=== PATIENT | male | born 1980 | race Caucasian/White ===

== ENCOUNTER → 2023-06-16 13:51 | Outpatient (CLI) | payer OTHER, SELFPAY ==
--- NOTE | ~2023-06-16 | XR_ITS ---
EXAMINATION:XR cervical spine 4-5V DATE: 06/16/2023 14:57 INDICATION: Cervical radiculopathy TECHNIQUE: AP, lateral,, bilateral oblique, lateral swimmers and odontoid views of the cervical spine are provided. COMPARISON: None FINDINGS: Alignment is normal. The odontoid process is intact. No fracture is identified. The vertebr al body heights are normal. There is moderate loss of intervertebral disc space height at C5-6 and C6 -7. Degenerative osteophytes project from the anterior endplates of the C4, C5, and C6 vertebral bodi es. There is moderate facet and uncovertebral joint osteoarthritis in the mid cervical spine. There i s mild to moderate bilateral neuroforaminal stenosis at C5-6. Prevertebral soft tissues are normal. IMPRESSION: 1. Moderate cervical spondylosis without acute findings. Reviewed, dictated and finalized at location B.
== END ==
DX: M54.12 Radiculopathy, cervical region (principal); M43.02 Spondylolysis, cervical region
CPT/HCPCS: 72050

== ENCOUNTER 2024-06-01 10:09 | Emergency (ER) | payer OTHER, SELFPAY ==
--- NOTE | ~2024-06-01 | XR_ITS ---
EXAMINATION: XR lumbar spine min 4V DATE: 06/01/2024 11:15 INDICATION: Low back pain. TECHNIQUE: 6 views of lumbar spine were obtained. COMPARISON: None. FINDINGS: There is 11 degrees dextroscoliosis of thoracolumbar spine. There are changes of anterior a nd posterior fusion procedures from L4 to S1 with interbody devices and pedicle screws. At L4-L5, the interbody device extends beyond the posterior margins of the endplates. There is mild chronic anteri or wedging of T12 and L1 vertebral bodies. There is mildly decreased disc height at L3-L4. There is m ultilevel facet joint osteoarthritis, severe at L3-L4. IMPRESSION: 1. Anterior and posterior fusion procedures from L4 to S1. At L4-L5, the interbody device extends bey ond the posterior margin of the endplates. 2. Thoracolumbar dextroscoliosis. 3. Mild lumbar spondylosis. Reviewed, dictated and finalized at location A. IMPRESSION: 1. Anterior and posterior fusion procedures from L4 to S1. At L4-L5, the interb ildefonso device extends beyond the posterior margin of the endplates. 2. Thoracolumbar dextroscoliosis. 3. Mild lumbar spondylosis.
[2024-06-01 10:21] VITALS: BP 164/113; PULSE 85; RESP 18; TEMP 36.9; O2SAT 100
--- NOTE | 2024-06-01 10:36 | ED.BACK ---
HPI - Back Pain/Injury General Chief Complaint: Back Pain/Injury Stated Complaint: Lower back pain Time Seen by Provider: 06/01/24 10:36 Source: patient, RN notes reviewed and old records reviewed Mode of arrival: ambulatory Limitations: no limitations History of Present Illness HPI Narrative: 44 year old male who presents to [facility] care with complaints of left sided lower back pain for the past 2-3 weeks with increased intensity since yesterday. Patient reports no known specific recent injury,is active at work, employed by [employer]. Patient reports pain to left lower back with some radiation to his left buttocks at times, denies any radiation of pain down his legs or any tingling or numbness to his legs. Patient reports that he has tried Tylenol and Ibuprofen and it doesn't touch the pain with is sharp at times. Patient reports previous back surgeries with last surgery fusion from L4-S1 with hardware which was done at [facility]. Patient reports no bladder dysfunction or any difficulty passing stools, no saddle paraesthesia. Patient reports that he is out of his blood pressure medication with blood pressure elevated, states is in process of finding new PCP. MD elicited complaint: back pain (left sided lower back pain ) Pertinent past history: prior back pain and back surgery (fusion) Onset (ago): week(s) (2-3 weeks with increased intensity since yesterday) Pain scale (0-10): 7 Quality: sharp and aching Location: lumbar spine Radiation: buttocks (left at times) Treatments prior to arrival: NSAIDS and acetaminophen Related Data Allergies Allergy/AdvReac Type Severity Reaction Status Date / Time No Known Allergies Allergy Verified 06/01/24 10:26 Review of Systems Review of Systems: CONSTITUTIONAL: Denies fever, chills, or sweats. EYES: Denies visual changes, redness, or discharge. ENT: Denies rhinorrhea, congestion, sore throat, or otalgia. CARDIOVASCULAR: Denies chest pain, palpitations, or edema. RESPIRATORY: Denies cough or dyspnea. GASTROINTESTINAL: Denies abdominal pain, nausea, vomiting, or diarrhea. GENITOURINARY: Denies dysuria or hematuria. SKIN: Denies rash or itching. MUSCULOSKELETAL: left sided back pain with some pain to buttock at times, no radiation down legs, joint pain, or myalgia. NEUROLOGIC: Denies headache, numbness, or weakness. PSYCHIATRIC: Denies anxiety or depression. All systems reviewed & are unremarkable except as noted in HPI and below PMFSH Past Medical History Medical History (Updated 06/02/24 @ 07:22 by Ivory Healy NP) Hypertension Surgical History Surgical History (Updated 06/02/24 @ 07:21 by Ivory Healy NP) H/O lumbosacral spine surgery fusion from L4-S1 Social History Social History (Updated 06/02/24 @ 07:24 by Ivory Healy NP) Smoking status: Never smoker Alcohol intake: current Alcohol use details: occasional social Substance use type: does not use Living arrangements: with family Gender identity (if verbalized by the patient): Male Comments At time of signature, agree with nursing past medical, surgical, social and family history. There is no relevant family history pertinent to the presenting complaint Exam Narrative: GENERAL: Well-appearing, well-nourished, and in no acute distress. HEAD: Normocephalic, atraumatic. EYES: PERRLA and EOMI. ENT: Nares clear, no rhinorrhea or epistaxis. Mucous membranes moist. NECK: Supple. no lymphadenopathy CHEST: Clear to auscultation. No respiratory distress.SAO2 100% on room air HEART: Regular rate and rhythm. No murmur heard. Normal peripheral pulses. ABDOMEN: Soft, nontender, nondistended, normal active bowel sounds. EXTREMITIES: Normal range of motion. No edema. left lumbar back pain with some radiation of pain to the left buttock at times, no pain down legs, no paraspinal tenderness or any voiced midline spinal tenderness,Patient denies any tingling or numbness to legs no difficulty passing uri
== END 2024-06-01 11:40 | disposition home or self-care (01) ==
PROVIDERS: Emergency Provider Registered Nurse; PCP Internal Medicine
DX: M54.50 Low back pain, unspecified (principal); I10 Essential (primary) hypertension
CPT/HCPCS: 72110; 99213; G0463

== ENCOUNTER 2024-08-25 12:57 | Outpatient (CLI) | payer OTHER, SELFPAY ==
--- NOTE | ~2024-08-25 | US_ITS ---
US renal BI 08/25/2024 14:05 Procedure: Realtime transabdominal ultrasound of the kidneys and bladder. Indication: Essential hypertension Comparison: No prior studies for comparison. Findings: Renal echotexture is normal bilaterally without hydronephrosis, contour deforming mass or r enal calculus. The right kidney measures 11.9 cm and left kidney measures 12.2 cm. Bladder within no rmal limits. Impression: 1: Unremarkable renal ultrasound. No stones, masses or hydronephrosis. Reviewed, dictated and finalized at location B. Impression: 1: Unremarkable renal ultrasound. No stones, masses or hydronephrosis.
== END 2024-08-25 12:58 | disposition home or self-care (01) ==
PROVIDERS: PCP Nurse Practitioner Adult Health; Visit Provider Nurse Practitioner Adult Health
DX: I10 Essential (primary) hypertension (principal)
CPT/HCPCS: 76775

== ENCOUNTER 2024-09-22 07:27 | Outpatient (CLI) | payer OTHER, SELFPAY ==
[2024-09-22 18:28] LABS: Hematocrit 49.5 % (42.0-52.0); Hemoglobin 16.3 g/dL (14.0-18.0); Mean Corpuscular HGB Conc 32.9 g/dl (32-36); Mean Corpuscular Hemoglobin 31.2 pg (26-34); Mean Corpuscular Volume 94.8 fl (80-100); Mean Platelet Volume 10.1 fl (7.4-10.4); Platelet Count Result 253 k/mm3 (150-375); Red Blood Count 5.22 M/mm3 (4.6-6.20); Red Cell Distribution Width 12.9 % (11.5-14.5); White Blood Count 5.5 K/mm3 (4.5-10.0)
[2024-09-22 19:12] LABS: Alanine Aminotransferase 28 U/L (6-50); Albumin Level 4.4 g/dL (3.5-5.1); Alkaline Phosphatase 66 U/L (38-126); Aspartate Amino Transferase 47 U/L (17-59); Blood Urea Nitrogen 15 mg/dL (9-20); Calcium 9.5 mg/dL (8.4-10.2); Carbon Dioxide 29 mmol/L (22-30); Chloride 102 mmol/L (98-107); Cholesterol 253 mg/dL (0-200); Estimated Glomerular Filt Rate > 60; Glucose 100 mg/dL (65-110); HDL Direct 40 mg/dL
[2024-09-22 19:13] LABS: Anion Gap 7 mmol/L (4-12); Bilirubin,Total 0.4 mg/dL (0.2-1.3); Sodium 138 mmol/L (137-145); Triglycerides 295 mg/dL (<150)
[2024-09-22 19:32] LABS: LDL Cholesterol Direct 151 mg/dL
[2024-09-22 20:02] LABS: Prostate Specific Antigen 0.9 ng/mL (< OR = 4.0)
[2024-09-22 20:25] LABS: Potassium 4.2 mmol/L (3.4-5.0)
[2024-09-27 18:28] LABS: Testosterone Free 47.7 pg/mL (35.0-155.0); Testosterone Total 286 ng/dL (250-1100)
== END 2024-09-22 07:28 | disposition home or self-care (01) ==
LOC: ANHBWCLAB 07:29
PROVIDERS: PCP Nurse Practitioner Adult Health; Visit Provider Nurse Practitioner Adult Health
DX: Z12.5 Encounter for screening for malignant neoplasm of prostate (principal)
CPT/HCPCS: 36415; 80053; 80061; 84153; 84402; 84403; 84443; 85027; G0103

== ENCOUNTER 2025-02-08 07:38 | Outpatient (CLI) | payer OTHER, SELFPAY ==
--- OUTSIDE RECORDS SUMMARY | 2025-02-08 07:41 | XMS_ITS | Referral Summary ---
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 08/23/2014 Overview (02/07/2017): Displacement of lumbar intervertebral disc without myelopathy Benign hypertension 03/19/2014 Overview (02/05/2017): BENIGN HYPERTENSION Depression 03/19/2014 Overview (02/07/2017): DEPRESSIVE DISORDER NEC Social History Tobacco Use Types Packs/Day Years Used Date Smoking Tobacco: Never Smokeless Tobacco: Never Alcohol Use Standard Drinks/Week Comments Yes 0 (1 standard drink = 0.6 oz pur e alcohol) Personal Safety Answer Date Recorded Getting School Help Needed Not on file 10/25 Sex and Gender Information Value Date Recorded Sex Assigned at Not on file Legal Sex Male 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 Gender Identity Not on file Sexual Orientation Not on file Last Filed Vital Signs Vital Sign Reading Time Taken Comments Blood Pressure 163/106 04/25/2023 10:02 AM CDT Pulse 85 04/25/2023 10:02 AM CDT Temperature 36.8 C (98.3 F) 12/28/2019 10:02 PM ENDLESS TRACK VEHICLE MECHANIC Respiratory Rate 18 12/28/2019 10:02 PM ENDLESS TRACK VEHICLE MECHANIC Oxygen Saturation 96% 12/28/2019 10:02 PM ENDLESS TRACK VEHICLE MECHANIC Inhaled Oxygen Concentration - - Weight 94.8 kg (209 lb 1.6 oz) 04/25/2023 10:02 AM CDT Height 167.6 cm (5' 6 ) 04/25/2023 10:02 AM CDT Body Mass Index 33.75 04/25/2023 10:02 AM CDT Plan of Treatment Not on file Insurance Member Subscriber Plan / Payer (Ef fective 2019-Present) Name:Tito Quarles Member ID:[id number] Relation to Subscriber:Self Name:Tito Quarles Subscriber ID:[id number] Payer ID:[id number] Group ID:Not on file Type:WORKERS COMPENSATION Address: [address] [place] [id number] [place] [address] Care Teams Decision Support Manager Relationship Specialty Start Date End Date Abraham Small MD [address] [place] [address] PCP - General Internal Medicine 04/25/23
--- OUTSIDE RECORDS SUMMARY | 2025-02-08 07:41 | XMS_ITS | Encounter Summary ---
Author Organization [facility] Address [address] [place] [address] Phone Care Team Providers Care Traffic Sign Erection Supervisor Name Role Phone Abraham Small MD Primary Care Provider [phone] Reason for Visit * Reason Comments Medication Refill Encounter Details Date Type Department Care Team (Late st Contact Info) Description 06/13/2022 Refill [facility] - Internal Medicine - [place] [address] [place] [address] Abraham Small MD [address] [place] [address] Medication Refill Social History Tobacco Use Types Packs/Day Years Used Date Smoking Tobacco: Never Smokeless Tobacco: Never Alcohol Use Standard Drinks/Week Comments Yes 0 (1 standard drink = 0.6 oz pur e alcohol) PHQ-2 Answer Date Recorded Total Score - Questions 1-9 0 02/01 Sexually Active Control Partners Comments Yes Sex and Gender Information Value Date Recorded Sex Assigned at Not on file Legal Sex Male 8:45 PM CDT Gender Identity Not on file Sexual Orientation Not on file COVID-19 Exposure Response Date Recorded In the last 10 days, have yo u been in contact with someone who was confirmed or suspected to have Coronavirus/COVID-19? No / Unsure 05/27/2022 1:19 PM CDT documented as of this encounter Miscellaneous Notes * Telephone Encounter - Tana Cooper RN - 06/14/2022 7:27 AM CDT Medication failed the protocol, provider to review and approve the medication order if appropriate. Requested Prescriptions Pending Prescriptions Disp Refills losartan (COZAAR) 50 MG Tablet [Pharmacy Med Name: LOSARTAN 50MG TABLETS] 30 Tablet 0 Sig: Take 1 Tablet by mouth daily. ARB Protocol Failed - 06/13/2022 7:33 PM Failed - Serum potassium on record in past 12 months No results found for: POTASSIUM, POCTK Failed - GFR on record in past 12 months No results found for: GFRNA Passed - BP on record in the past year Clinician-entered: BP Readings from Last 3 Encounters: 05/27/22 126/74 02/14/22 (!) 144/98 06/04/21 128/80 Patient-entered: No data recorded Passed - Visit with relevant provider in past year or upcoming 90 days Recent Visits Date Type Provider Dept 05/27/22 Office Visit Abraham Small MD [facility] [place] 02/14/22 Office Visit Elyssa Ariza PAC [facility] [place] 12/06/21 Telemedicine Abraham Small MD [facility] [place] Showing recent visits within past 365 days and meeting all other requirements Future Appointments Date Type Provider Dept 08/27/22 Appointment Abraham Small MD [facility] [place] Showing future appointments within next 90 days and meeting all other requirements documented in this encounter Plan of Treatment Not on file documented as of this encounter Visit Diagnoses Not on filedocumented in this encounter Additional Health Concerns Assessment Noted Time PHQ-9 Depression Total Score: 0 02/14/20 21 2:00 PM CDT documented as of this encounter Care Teams Traffic Sign Erection Supervisor Relationship Specialty Start Date End Date Abraham Small MD [address] [place] [address] PCP - General Internal Medicine 10/19/20 documented as of this encounter
--- OUTSIDE RECORDS SUMMARY | 2025-02-08 07:41 | XMS_ITS | Encounter Summary ---
Author Organization [facility] Address [address] [place] [address] Phone Care Team Providers Care Freight Weigher Name Role Phone Abraham Small MD Primary Care Provider [phone] Reason for Visit * Reason Comments Medication Refill Encounter Details Date Type Department Care Team (Late st Contact Info) Description 01/03/2024 Refill [facility] - Internal Medicine - [place] [address] [place] [id number] Elyssa Ariza, [facility] [address] [place] [address] Medication Refill Social History Tobacco [...] on file Sexual Orientation Not on file documented as of this encounter Miscellaneous Notes * Telephone Encounter - Michell Crandall RN - 01/05/2024 8:17 AM CST Medication failed the protocol, provider to review and approve the medication order if appropriate. Requested Prescriptions Pending Prescriptions Disp Refills losartan (COZAAR) 100 MG Tablet [Pharmacy Med Name: LOSARTAN POTASSIUM 100 MG TAB] 90 Tablet 1 Sig: TAKE 1 TABLET BY MOUTH EVERY DAY ARB Protocol Failed - 01/03/2024 7:06 AM Failed - Serum potassium on record in past 12 months No results found for: POTASSIUM , POCTK Failed - GFR on record in past 12 months No results found for: GFRNA Passed - BP on record in the past year Clinician-entered: BP Readings from Last 3 Encounters: 04/02/23 (!) 152/110 11/27/22 128/72 08/27/22 162/90 Patient-entered: No data recorded Passed - Visit with relevant provider in past year or upcoming 90 days Recent Visits Date Type Provider Dept 04/02/23 Office Visit Elyssa Ariza, PAC [facility] [place] Showing recent visits within past 365 days and meeting all other requirements Future Appointments No visits were found meeting these conditions. Showing future appointments within next 90 days and meeting all other requirements [employer] documented in this encounter Plan of Treatment Not on file documented as of this encounter Visit Diagnoses Not on filedocumented in this encounter Additional Health Concerns Assessment Noted Time PHQ-9 Depression Total Score: 0 02/14/20 21 2:00 PM CDT documented as of this encounter Care Teams Freight Weigher Relationship Specialty Start Date End Date Abraham Small MD [address] [place] [address] PCP - General Internal Medicine 10/19/20 documented as of this encounter
--- OUTSIDE RECORDS SUMMARY | 2025-02-08 07:41 | XMS_ITS | Encounter Summary ---
Author Organization [facility] Address [address] [place] [address] Phone Care Team Providers Care Bathroom Tiling Professional Name Role Phone Abraham Small MD Primary Care Provider [phone] Reason for Visit * Reason Comments Medication Refill Encounter Details Date Type Department Care Team (Late st Contact Info) Description 09/16/2020 Refill [facility] - Internal Medicine - [place] [address] [place] [address] Abraham Small MD [address] [place] [address] Medication Refill Social History Tobacco Use Types Packs/Day Years Used Date Smoking Tobacco: Never Assessed Sex and Gender Information Value Date Recorded Sex Assigned at Not on file Legal Sex Male 8:45 PM CDT Gender Identity Not on file Sexual Orientation Not on file documented as of this encounter Miscellaneous Notes * Telephone Encounter - Tana Cooper RN - 09/18/2020 8:01 AM CST Please review and sign. NCE ASSOCIATE documented in this encounter Plan of Treatment Not on file documented as of this encounter Visit Diagnoses Not on filedocumented in this encounter Care Teams Bathroom Tiling Professional Relationship Specialty Start Date End Date Abraham Small MD [address] [place] [address] PCP - General Internal Medicine 10/19/20 documented as of this encounter
--- OUTSIDE RECORDS SUMMARY | 2025-02-08 07:41 | XMS_ITS | Encounter Summary ---
Author Organization [facility] Address [address] [place] [address] Phone Care Team Providers Care Education Officer Name Role Phone Abraham Small MD Primary Care Provider [phone] Reason for Visit * Reason Comments Medication Refill Encounter Details Date Type Department Care Team (Late st Contact Info) Description 06/11/2023 Refill [facility] - Internal Medicine - [place] [address] [place] [address] Abraham Small MD [address] [place] [place] [address] Medication Refill Social History Tobacco [...] Telephone Encounter - Michell Crandall RN - 06/11/2023 8:40 AM CDT Medication failed the protocol, provider to review and approve the medication order if appropriate. Requested Prescriptions Pending Prescriptions Disp Refills losartan (COZAAR) 100 MG Tablet [Pharmacy Med Name: LOSARTAN POTASSIUM 100 MG TAB] 90 Tablet 1 Sig: TAKE 1 TABLET BY MOUTH EVERY DAY ARB Protocol Failed - 06/11/2023 12:03 AM Failed - Serum potassium on record [...] Type Provider Dept 04/02/23 Office Visit Elyssa Ariza PAC [facility] [place] 11/27/22 Office Visit Abraham Small MD [facility] [place] 08/27/22 [facility] [place] Showing recent visits within past 365 days [...] documented as of this encounter Care Teams Education Officer Relationship Specialty Start Date End Date Abraham Small MD [address] [place] [address] PCP - General Internal Medicine 10/19/20 documented as of this encounter
--- OUTSIDE RECORDS SUMMARY | 2025-02-08 07:41 | XMS_ITS | Clinical Summary ---
Author Organization [facility] Address [address] [place] [address] Care Team Providers Care Videotape Operator Name Role Phone Abraham Small MD Primary Care Provider [phone] Allergies No known active allergies Medications losartan [...] Depression 03/19/2014 Overview (02/07/2017): DEPRESSIVE DISORDER NEC Surgical History Surgery Date Site/Laterality Comments LUMBAR SPINE SURGERY Surgery, lumbar spine SPINAL FUSION Spinal fusion, lumbar Medical History Medical History Date Comments Hypercholesterolemia High choles terol Hypertension Hypertension Family History Medical History Relation Name Comments Thyroid disease Mother Thyroid diso rder; Relation Name Status Comments Mother Social History Tobacco Use Types Packs/Day Years Used Date Smoking Tobacco: Never Smokeless Tobacco: Never Alcohol Use Standard Drinks/Week Comments Yes 0 (1 standard drink = 0.6 oz pur e alcohol) Personal Safety Answer Date Recorded Getting School Help Needed Not on file 10/25 Sex and Gender Information Value Date Recorded Sex Assigned at Not on file Legal Sex Male 8:58 PM OPERATIONS PROFESSIONAL Gender Identity Not on file Sexual Orientation Not on file Obstetrics History Last Filed Vital Signs Vital Sign Reading Time Taken Comments Blood Pressure 163/106 04/25/2023 10:02 AM CDT Pulse 85 04/25/2023 10:02 AM CDT Temperature 36.8 C (98.3 F) 12/28/2019 10:02 PM OPERATIONS PROFESSIONAL Respiratory Rate 18 12/28/2019 10:02 PM OPERATIONS PROFESSIONAL Oxygen Saturation 96% 12/28/2019 10:02 PM OPERATIONS PROFESSIONAL Inhaled Oxygen Concentration - - Weight 94.8 kg (209 lb 1.6 oz) 04/25/2023 10:02 AM CDT Height 167.6 cm (5' 6 ) 04/25/2023 10:02 AM CDT Body Mass Index 33.75 04/25/2023 10:02 AM CDT Plan of Treatment Health Maintenance Due Date Last Done Comments Colon Cancer Screening-Colonoscopy 1979 Depression Screening 1979 Hepatitis C Screening 1979 Regular Well Visit/Exam 18-64 1997 DTaP/Tdap/Td Vaccine (2 - Td or Tdap) 12/23/2018 12/23/2008 Influenza Vaccine (Season Ended) 2025 Hepatitis B Screening Completed 06/30/2009 , 01/25/2009, 12/23/2008 HPV Vaccines Aged Out No longer eligi ble based on patient's age to complete this topic Pneumococcal vaccine <65 Aged Out No longer eligible based on patient's age to complete this topic Insurance [employer] GENERIC Member Subscriber Plan / Payer (Ef fective 2019-Present) Name:Tito Quarles Member ID:[id number] Relation to Subscriber:Self Name:Tito Quarles Subscriber ID:[id number] Payer ID:[id number] Group ID:Not on file Type:WORKERS COMPENSATION Address: [address] [place] [id number] [place] [address] Care Teams Videotape Operator Relationship Specialty Start Date End Date Abraham Small MD [address] [place] [address] PCP - General Internal Medicine 04/25/23
--- OUTSIDE RECORDS SUMMARY | 2025-02-08 07:41 | XMS_ITS | Clinical Summary ---
Author Organization [facility] Address [address] [place] [address] Care Team Providers Care Anchor Operator Name Role Phone None, Provider MD Primary Care Provider Unavaila ble Allergies No known active allergies Medications No known medications Family History Medical History Relation Comments Cancer Maternal Grandfather Thyroid Disease Neg Hx Relation Status Comments Maternal Grandfather Social History Tobacco Use Types Packs/Day Years Used Date Smoking Tobacco: Never Smokeless Tobacco: Never Alcohol Use Standard Drinks/Week Comments Yes 0 (1 standard drink = 0.6 oz pur e alcohol) socially Sex and Gender Information Value Date Recorded Sex Assigned at Not on file Legal Sex Male 8:47 PM CDT Gender Identity Not on file Sexual Orientation Not on file Last Filed Vital Signs Vital Sign Reading Time Taken Comments Blood Pressure 174/108 05/20/2020 9:05 PM CDT Pulse 125 05/20/2020 9:05 PM CDT Temperature 36.6 C (97.9 F) 05/20/2020 9:05 PM CDT Respiratory Rate 18 05/20/2020 9:05 PM CDT Oxygen Saturation 95% 05/20/2020 9:05 PM CDT Inhaled Oxygen Concentration - - Weight 95.3 kg (210 lb) 05/20/2020 9:05 PM CDT Height 167.6 cm (5' 6 ) 05/20/2020 9:05 PM CDT Body Mass Index 33.89 05/20/2020 9:05 PM CDT Plan of Treatment Health Maintenance Due Date Last Done Comments Colorectal Cancer Screening Colonoscopy (10 Years) 1979 Annual Physical 1982 Hepatitis C 1997 DTaP, Tdap and Td Vaccines ( 1 - Tdap) 1998 Hepatitis B Vaccines (1 of 3 - 19+ 3-dose series) 1998 COVID-19 Vaccine (2023-2 5 season) 2024 HPV Vaccines Aged Out No longer eligi ble based on patient's age to complete this topic Meningococcal B Vaccine Aged Out No l onger eligible based on patient's age to complete this topic Meningococcal Vaccine Aged Out No barbara marino eligible based on patient's age to complete this topic Pneumococcal Vaccine: Pediat rics (0 to 5 Years) and At-Risk Patients (6 to 64 Years) Aged Out No longer eligible b ased on patient's age to complete this topic RSV Immunizations Under 20 Months Aged Out No longer eligible based on patient's age to complete this topic Insurance [facility] [id number] Advance Directives Documents on File Type Date Recorded Patient Per Diem Clerk Expl anation Legal Documents 12/21/2020 1:26 PM RECVD & CMPLTD ATTY REQ. FOR HB BILLS FOR [facility] LAW Care Teams Anchor Operator Relationship Specialty Start Date End Date None, Provider, PCP - General 05/20/20
--- OUTSIDE RECORDS SUMMARY | 2025-02-08 07:41 | XMS_ITS | Encounter Summary ---
Author Organization [facility] Address [address] [place] [address] Phone Care Team Providers Care Slubber Hand Name Role Phone Abraham Small MD Primary Care Provider [phone]- [phone] Reason for Visit * Reason Comments Medication Refill Encounter Details Date Type Department Care Team (Late st Contact Info) Description 08/09/2020 Refill [facility] - Internal Medicine - [place] [address] [place] [address] Abraham Small MD [address] [facility] [address] Medication Refill Social History Tobacco Use Types Packs/Day Years Used Date Smoking Tobacco: Never Assessed Sex and Gender Information Value Date Recorded Sex Assigned at Not on file Legal Sex Male 8:45 PM CDT Gender Identity Not on file Sexual Orientation Not on file documented as of this encounter Miscellaneous Notes * Telephone Encounter - Gia Bonilla RN - 08/09/2020 11:46 AM CDT Pended Rx refill to PCP. documented in this encounter Plan of Treatment Not on file documented as of this encounter Visit Diagnoses Not on filedocumented in this encounter Care Teams Slubber Hand Relationship Specialty Start Date End Date Abraham Small MD [address] [place] [address] PCP - General Internal Medicine 10/19/20 documented as of this encounter
--- OUTSIDE RECORDS SUMMARY | 2025-02-08 07:41 | XMS_ITS | Clinical Summary ---
Author Organization [facility] Address [address] [place] [address] Phone Care Team Providers Care Mash Filter Operator Name Role Phone Abraham Small MD Primary Care Provider [phone]- [phone] Allergies No known active allergies Medications meloxicam (MOBIC) 15 MG Tablet Take 1 Tablet by mouth Daily as needed for Mild or more severe pain. 30 Tablet 1 3 Active Additional Information Patient not taking.Reported on 04/02/2023 celecoxib (CeleBREX) 400 MG Capsule Take 400 mg by mouth daily. 3 Active losartan (COZAAR) 100 MG Tablet TAKE 1 TABLET BY MOUTH EVERY DAY 14 Tablet 4 Active Active Problems Problem Noted Date Diagnosed Date Other hyperlipidemia 08/27/2022 History of back surgery 02/14/2022 Overview (02/14/2022): 2014 Chronic left shoulder pain 06/04/2021 Essential hypertension, benign 11/07/2020 Resolved Problems Problem Noted Date Diagnosed Date Resolved Date Dysthymic disorder 11/07/2020 3 Immunizations Immunization Administration Dates Next Due Hepatitis B Vaccine 06/30/2009,01/25/2009,2008 TDAP Vaccine 12/23/2008 Family History Medical History Relation Name Comments Thyroid Disease Mother No Known Problems Sister Relation Name Status Comments Mother Alive Sister Alive Social History Tobacco Use Types Packs/Day Years Used Date Smoking Tobacco: Never Smokeless Tobacco: Never Tobacco Cessation:Counseling Given: No Alcohol Use Standard Drinks/Week Comments Yes 0 (1 standard drink = 0.6 oz pur e alcohol) PHQ-2 Answer Date Recorded Total Score - Questions 1-9 0 04/1 01/2021 Sexually Active Control Partners Comments Yes Sex and Gender Information Value Date Recorded Sex Assigned at Not on file Legal Sex Male 8:45 PM CDT Gender Identity Not on file Sexual Orientation Not on file Last Filed Vital Signs Vital Sign Reading Time Taken Comments Blood Pressure 152/110 04/02/2023 1:16 PM CDT Pulse 105 04/02/2023 1:16 PM CDT Temperature 36.8 C (98.3 F) 04/02/2023 1:16 PM CDT Respiratory Rate 14 04/02/2023 1:16 PM CDT Oxygen Saturation 98% 04/02/2023 1:16 PM CDT Inhaled Oxygen Concentration - - Weight 94.3 kg (208 lb) 04/02/2023 1:16 PM CDT Height 167.6 cm (5' 6 ) 04/02/2023 1:16 PM CDT Body Mass Index 33.57 04/02/2023 1:16 PM CDT Plan of Treatment Health Maintenance Due Date Last Done Comments Hepatitis C Virus (HCV) Screening 1979 Colonoscopy 01/29/2024 Colorectal Cancer Screening 01/29/2024 SARS-COV-2 Immunization ( season) 2024 Respiratory Syncytial Virus (RSV) Immunization (Adult) (1 - 1-dose 75+ series) 2054 DTaP/Tdap/Td Immunization Discontinued 12/23/2008 Hepatitis B Immunization Completed 009, 01/25/2009, 12/23/2008 Influenza Immunization Discontinued Meningococcal Immunization (ACWY) Aged Out No longer eligible based on patient's age to complete this topic Pneumococcal Immunization Combined Aged Out No longer eligible based on patient's age to complete this topic Rotavirus Immunization Aged Out No lo nger eligible based on patient's age to complete this topic Insurance [facility] Care Teams Mash Filter Operator Relationship Specialty Start Date End Date Abraham Small MD [address] [place] [address] PCP - General Internal Medicine 10/19/20
[2025-02-08 19:21] LABS: Hematocrit 59.1 % (42.0-52.0); Hemoglobin 19.4 g/dL (14.0-18.0); Mean Corpuscular HGB Conc 32.8 g/dl (32-36); Mean Corpuscular Hemoglobin 30.7 pg (26-34); Mean Corpuscular Volume 93.7 fl (80-100); Mean Platelet Volume 10.3 fl (7.4-10.4); Platelet Count Result 260 k/mm3 (150-375); Red Blood Count 6.31 M/mm3 (4.6-6.20); Red Cell Distribution Width 13.4 % (11.5-14.5); White Blood Count 9.6 K/mm3 (4.5-10.0)
[2025-02-08 19:43] LABS: Alanine Aminotransferase 27 U/L (6-50); Albumin Level 4.5 g/dL (3.5-5.1); Alkaline Phosphatase 75 U/L (38-126); Anion Gap 10 mmol/L (4-12); Aspartate Amino Transferase 36 U/L (17-59); Blood Urea Nitrogen 18 mg/dL (9-20); Carbon Dioxide 29 mmol/L (22-30); Chloride 98 mmol/L (98-107); Cholesterol 229 mg/dL (0-200); Estimated Glomerular Filt Rate > 60; Glucose 117 mg/dL (65-110); HDL Direct 36 mg/dL; Potassium 3.8 mmol/L (3.4-5.0); Sodium 137 mmol/L (137-145); Triglycerides 193 mg/dL (<150)
[2025-02-08 19:54] LABS: LDL Cholesterol Direct 156 mg/dL
[2025-02-13 08:13] LABS: Testosterone Free 18.5 pg/mL (35.0-155.0); Testosterone Total 129 ng/dL (250-1100)
== END 2025-02-08 07:39 | disposition home or self-care (01) ==
LOC: ANHBWCLAB 07:39
PROVIDERS: PCP Nurse Practitioner Adult Health; Visit Provider Nurse Practitioner Adult Health
DX: R79.89 Other specified abnormal findings of blood chemistry (principal); I10 Essential (primary) hypertension; Z12.11 Encounter for screening for malignant neoplasm of colon; Z12.2 Encounter for screening for malignant neoplasm of respiratory organs
CPT/HCPCS: 36415; 80053; 80061; 84402; 84403; 85027

== ENCOUNTER 2025-05-02 07:21 | Outpatient (CLI) | payer OTHER, SELFPAY ==
[2025-05-02 18:29] LABS: Hematocrit 54.6 % (42.0-52.0); Hemoglobin 17.6 g/dL (14.0-18.0); Mean Corpuscular HGB Conc 32.2 g/dl (32-36); Mean Corpuscular Hemoglobin 30.8 pg (26-34); Mean Corpuscular Volume 95.6 fl (80-100); Mean Platelet Volume 10.6 fl (7.4-10.4); Platelet Count Result 252 k/mm3 (150-375); Red Blood Count 5.71 M/mm3 (4.6-6.20); Red Cell Distribution Width 13.5 % (11.5-14.5); White Blood Count 6.4 K/mm3 (4.5-10.0)
== END 2025-05-02 07:22 | disposition home or self-care (01) ==
LOC: ANHBWCLAB 07:22
PROVIDERS: PCP Nurse Practitioner Adult Health; Visit Provider Nurse Practitioner Adult Health
DX: R79.89 Other specified abnormal findings of blood chemistry (principal)
CPT/HCPCS: 36415; 85027

== ENCOUNTER 2025-05-19 07:39 | Outpatient (CLI) | payer OTHER, SELFPAY ==
--- OUTSIDE RECORDS SUMMARY | 2025-05-19 07:42 | XMS_ITS | Encounter Summary ---
Author Organization [facility] Address [address] [place] [address] Phone Care Team Providers Care Caser Name Role Phone Abraham Small MD Primary Care Provider [phone]- [phone] Reason for Visit * Reason Comments Medication Refill Encounter Details Date Type Department Care Team (Late st Contact Info) Description 08/09/2020 Refill [facility] - Internal Medicine - [place] [address] [place] [address] Abraham Small MD [address] [facility] [place] [address] Medication Refill Social History Tobacco [...] on filedocumented in this encounter Care Teams Caser Relationship Specialty Start Date End Date Abraham Small MD [address] [place] [address] PCP - General Internal Medicine 10/19/20 documented as of this encounter
--- OUTSIDE RECORDS SUMMARY | 2025-05-19 07:42 | XMS_ITS | Encounter Summary ---
Author Organization [facility] Address [address] [place] [address] Phone Care Team Providers Care Tip Inserter Name Role Phone Abraham Small MD Primary Care Provider [phone] Reason for Visit * Reason Comments Medication Refill Encounter Details Date Type Department Care Team (Late st Contact Info) Description 01/03/2024 Refill [facility] - Internal Medicine - [place] [address] [place] [id number] Elyssa Ariza, [facility] [address] [place] [address] Medication Refill Social History Tobacco [...] 90 days and meeting all other requirements NESS QUALITY ASSURANCE ANALYST documented in this encounter Plan of Treatment Not on file documented as of this encounter Visit Diagnoses Not on filedocumented in this encounter Additional Health Concerns Assessment Noted Time PHQ-9 Depression Total Score: 0 02/14/20 21 2:00 PM CDT documented as of this encounter Care Teams Tip Inserter Relationship Specialty Start Date End Date Abraham Small MD [address] [place] [address] PCP - General Internal Medicine 10/19/20 documented as of this encounter
--- OUTSIDE RECORDS SUMMARY | 2025-05-19 07:43 | XMS_ITS | Encounter Summary ---
Author Organization [facility] Address [address] [place] [address] Phone Care Team Providers Care Fiberglass Boat Parts Finisher Name Role Phone Abraham Small MD Primary Care Provider [phone] Reason for Visit * Reason Comments Medication Refill Encounter Details Date Type Department Care Team (Late st Contact Info) Description 06/13/2022 Refill [facility] - Internal Medicine - [place] [address] [place] [address] Abraham Small MD [address] [place] [address] Medication Refill Social History Tobacco [...] 05/27/22 Office Visit Abraham Small MD [facility] [place] 02/14/22 Office Visit Elyssa Ariza [facility] [place] 12/06/21 Telemedicine Abraham Small MD [facility] [place] Showing recent visits within past 365 days and meeting all other requirements Future Appointments Date Type Provider Dept 08/27/22 Appointment Abraham Small MD [facility] [place] Showing future appointments within next 90 days and meeting all other requirements documented in this encounter Plan of Treatment Not on file documented as of this encounter Visit Diagnoses Not on filedocumented in this encounter Additional Health Concerns Assessment Noted Time PHQ-9 Depression Total Score: 0 02/14/20 21 2:00 PM CDT documented as of this encounter Care Teams Fiberglass Boat Parts Finisher Relationship Specialty Start Date End Date Abraham Small MD [address] [place] [address] PCP - General Internal Medicine 10/19/20 documented as of this encounter
--- OUTSIDE RECORDS SUMMARY | 2025-05-19 07:43 | XMS_ITS | Encounter Summary ---
Author Organization [facility] Address [address] [place] [address] Phone Care Team Providers Care Academic Support Coordinator Name Role Phone Abraham Small MD Primary Care Provider [phone] Reason for Visit * Reason Comments Medication Refill Encounter Details Date Type Department Care Team (Late st Contact Info) Description 09/16/2020 Refill [facility] - Internal Medicine - [place] [address] [place] [address] Abraham Small MD [address] [place] [address] Medication Refill Social History Tobacco [...] 8:01 AM CST Please review and sign. 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
--- OUTSIDE RECORDS SUMMARY | 2025-05-19 07:43 | XMS_ITS | Clinical Summary ---
Author Organization [facility] Address [address] [place] [address] Care Team Providers Care Principal Consultant Name Role Phone Abraham Small MD Primary Care Provider [phone]- [phone] Allergies No known active allergies Medications losartan [...] on file Legal Sex Male 8:58 PM VICE PRESIDENT QUALITY ASSURANCE Gender Identity Not on file Sexual Orientation Not on file Obstetrics History Last Filed Vital Signs Vital Sign Reading Time Taken Comments Blood Pressure 163/106 04/25/2023 10:02 AM CDT Pulse 85 04/25/2023 10:02 AM CDT Temperature 36.8 C (98.3 F) 12/28/2019 10:02 PM VICE PRESIDENT QUALITY ASSURANCE Respiratory Rate 18 12/28/2019 10:02 PM VICE PRESIDENT QUALITY ASSURANCE Oxygen Saturation 96% 12/28/2019 10:02 PM VICE PRESIDENT QUALITY ASSURANCE Inhaled Oxygen Concentration - - Weight 94.8 kg (209 lb 1.6 oz) 04/25/2023 10:02 AM CDT Height 167.6 cm (5' 6) 04/25/2023 10:02 AM CDT Body Mass Index 33.75 04/25/2023 10:02 AM CDT Plan of Treatment Health Maintenance Due Date Last Done Comments Colon Cancer Screening-Colonoscopy 1979 Depression Screening 1979 Hepatitis C Screening 1979 Regular Well Visit/Exam 18-64 1997 DTaP/Tdap/Td Vaccine (2 - Td or Tdap) 12/23/2018 12/23/2008 Influenza Vaccine (#1) 2025 Hepatitis B Screening Completed 06/30/2009 , [...] Group ID:Not on file Type:WORKERS COMPENSATION Address: [address] [place] [address] [place] [address] Care Teams Principal Consultant Relationship Specialty Start Date End Date Abraham Small MD [address] [place] [address] PCP - General Internal Medicine 04/25/23
--- OUTSIDE RECORDS SUMMARY | 2025-05-19 07:43 | XMS_ITS | Clinical Summary ---
Author Organization [facility] Address [address] [place] [address] Care Team Providers Care Appliance Tester Name Role Phone None, Provider MD Primary [...] 9:05 PM CDT Height 167.6 cm (5' 6) 05/20/2020 9:05 PM CDT Body Mass Index 33.89 05/20/2020 9:05 PM CDT Plan of Treatment Health Maintenance Due Date Last Done Comments Colorectal Cancer Screening Colonoscopy (10 Years) 1979 Annual Physical 1982 Hepatitis C 1997 DTaP, Tdap and Td Vaccines ( 1 - Tdap) 1998 Hepatitis B Vaccines (1 of 3 - 19+ 3-dose series) 1998 COVID-19 Vaccine (2023-2 5 season) 2024 Meningococcal B Vaccine Aged Out No l onger eligible based on patient's age to complete this topic Meningococcal Vaccine Aged Out No barbara marino eligible based on patient's age to complete this topic Pneumococcal Vaccine: Pediat rics (0 to 5 Years) and At-Risk Patients (6 to 49 Years) Aged Out No longer eligible b ased on patient's age to complete this topic RSV Immunizations Under 20 Months Aged Out No longer eligible based on patient's age to complete this topic Insurance [employer] Advance Directives Documents on File Type Date Recorded Patient Oil Distributor Expl anation Legal Documents 12/21/2020 1:26 PM RECVD & CMPLTD ATTY REQ. FOR HB BILLS FOR [facility] LAW Care Teams Appliance Tester Relationship Specialty Start Date End Date None, Provider, PCP - General 05/20/20
--- OUTSIDE RECORDS SUMMARY | 2025-05-19 07:43 | XMS_ITS | Clinical Summary ---
Author Organization [facility] Address [address] [place] [address] Phone Care Team Providers Care Supervisor Transcribing Operators Name Role Phone Abraham Small MD Primary Care Provider [phone] Allergies No known active allergies Medications meloxicam [...] 1:16 PM CDT Height 167.6 cm (5' 6) 04/02/2023 1:16 PM CDT Body Mass Index 33.57 04/02/2023 1:16 PM CDT Plan of Treatment Health Maintenance Due Date Last Done Comments Hepatitis C Virus (HCV) Screening 1979 Cologuard 01/29/2024 Colonoscopy 01/29/2024 Colorectal Cancer Screening 01/29/2024 Immunochemical Fecal Occult Blood 01/29/2024 SARS-COV-2 Immunization ( season) 2024 Respiratory Syncytial Virus (RSV) Immunization (Adult) (1 - 1-dose 75+ series) 2054 DTaP/Tdap/Td Immunization Discontinued 12/23/2008 Hepatitis B Immunization Completed 009, 01/25/2009, 12/23/2008 Human Papillomavirus (HPV) Immunization Aged Out No longer eligible based on patient's age to complete this topic Influenza Immunization Discontinued Meningococcal Immunization (ACWY) Aged Out No longer eligible based on patient's age to complete this topic Pneumococcal Immunization Combined Aged Out No longer eligible based on patient's age to complete this topic Rotavirus Immunization Aged Out No lo nger eligible based on patient's age to complete this topic Insurance Care Teams Supervisor Transcribing Operators Relationship Specialty Start Date End Date Abraham Small MD [address] [place] [address] PCP - General Internal Medicine 10/19/20
--- OUTSIDE RECORDS SUMMARY | 2025-05-19 07:43 | XMS_ITS | Referral Summary ---
Author Organization [facility] Address [address] [place] [address] Care Team Providers Care Bell Hole Digger Name Role Phone Abraham Small MD Primary Care Provider [phone]- [phone] Allergies No known active allergies Medications losartan [...] on file Legal Sex Male 8:58 PM EXECUTIVE COMMUNICATIONS MANAGER Gender Identity Not on file Sexual Orientation Not on file Last Filed Vital Signs Vital Sign Reading Time Taken Comments Blood Pressure 163/106 04/25/2023 10:02 AM CDT Pulse 85 04/25/2023 10:02 AM CDT Temperature 36.8 C (98.3 F) 12/28/2019 10:02 PM EXECUTIVE COMMUNICATIONS MANAGER Respiratory Rate 18 12/28/2019 10:02 PM EXECUTIVE COMMUNICATIONS MANAGER Oxygen Saturation 96% 12/28/2019 10:02 PM EXECUTIVE COMMUNICATIONS MANAGER Inhaled Oxygen Concentration - - Weight 94.8 [...] Group ID:Not on file Type:WORKERS COMPENSATION Address: [address] [place] [address] [place] [address] Care Teams Bell Hole Digger Relationship Specialty Start Date End Date Abraham Small MD [address] [place] [address] PCP - General Internal Medicine 04/25/23
--- OUTSIDE RECORDS SUMMARY | 2025-05-19 07:43 | XMS_ITS | Encounter Summary ---
Author Organization [facility] Address [address] [place] [address] Phone Care Team Providers Care Racebook Writer Name Role Phone Abraham Small MD Primary Care Provider [phone] Reason for Visit * Reason Comments Medication Refill Encounter Details Date Type Department Care Team (Late st Contact Info) Description 06/11/2023 Refill [facility] - Internal Medicine - [place] [address] [place] [address] Abraham Small MD [address] [place] [address] Medication Refill Social History Tobacco [...] [place] 08/27/22 [facility] [place] Showing recent visits within past 365 days [...] documented as of this encounter Care Teams Racebook Writer Relationship Specialty Start Date End Date Abraham Small MD [address] [place] [address] PCP - General Internal Medicine 10/19/20 documented as of this encounter
[2025-05-24 10:08] LABS: Free Testosterone (Direct) 2.7 pg/mL (6.8-21.5)
== END 2025-05-19 07:40 | disposition home or self-care (01) ==
LOC: ANHBWCLAB 07:40
PROVIDERS: PCP Nurse Practitioner Adult Health; Visit Provider Nurse Practitioner Adult Health
DX: R79.89 Other specified abnormal findings of blood chemistry (principal)
CPT/HCPCS: 84402